=== PATIENT | male | born 1970 | race Caucasian/White ===

== ENCOUNTER 2018-06-05 19:55 | Emergency (ER) | payer OTHER ==
[2018-06-05 19:55] VITALS: BMI 22.1
--- NOTE | 2018-06-05 21:32 | C.PDOC ---
History Of Present Illness 47 year old male presents to the ED c/o neck pain radiating to his left arm for the past 3-4 days. Patient reports pain worsens while sleeping on his left side. Patient denies headache, CP, SOB, palpitations, weakness, numbness, injury, fall, trauma. Time Seen by Provider: 06/05/18 20:49 Chief Complaint (Nursing): Upper Extremity Problem/Injury History Per: Patient History/Exam Limitations: no limitations Onset/Duration Of Symptoms: Days (3-4) Current Symptoms Are (Timing): Still Present Quality: "Pain" Exacerbating Factor(s): Worse At Night Recent travel outside of the [place]: No Additional History Per: Patient Past Medical History Reviewed: Historical Data, Nursing Documentation, Vital Signs Vital Signs: Last Vital Signs Temp 98.4 F 06/05/18 20:27 Pulse 72 06/05/18 20:27 Resp 16 06/05/18 20:27 BP 114/68 06/05/18 20:27 Pulse Ox 99 06/05/18 20:27 - Medical History PMH: No Chronic Diseases Surgical History: No Surg Hx - [facility] Procedures LAPAROSCOP APPENDECTOMY (11/09/13) Family History: States: Unknown Family Hx - Social History Hx Tobacco Use: No Hx Alcohol Use: No Hx Substance Use: No - Immunization History Hx Tetanus Toxoid Vaccination: No Hx Influenza Vaccination: No Hx Pneumococcal Vaccination: No Review Of Systems Constitutional: Negative for: Fever, Chills Cardiovascular: Negative for: Chest Pain Respiratory: Negative for: Cough, Shortness of Breath Gastrointestinal: Negative for: Nausea, Vomiting, Abdominal Pain Musculoskeletal: Positive for: Neck Pain, Arm Pain Skin: Negative for: Rash Neurological: Negative for: Weakness, Numbness, Headache Physical Exam - Physical Exam Appears: Non-toxic, No Acute Distress Skin: Normal Color, Warm, Dry Head: Atraumatic, Normacephalic Eye(s): bilateral: Normal Inspection Neck: Normal ROM, Midline Cervical Tenderness, Paracervical Tenderness (left side), Supple Extremity: Normal ROM (left arm, shoulder and elbow normal), No Tenderness, Capillary Refill (< 2 seconds), No Swelling Pulses: Left Radial: Normal, Right Radial: Normal Neurological/Psych: Oriented x3, Normal Speech, Normal Cognition, Normal Motor, Normal Sensation Gait: Steady ED Course And Treatment O2 Sat by Pulse Oximetry: 99 (ON RA) Pulse Ox Interpretation: Normal - Other Rad Cervical Spine X-Ray X-Ray: Interpreted by Me, Viewed By Me Interpretation: muscle spasm, straightening of cervical lordosis, DJD Progress Note: Plan: - Cervical spine X-Ray. Patient was prescribed pain m edeications, advised to follow up with PMD in 2 days for further evaluation. Disposition - Disposition Disposition: HOME/ ROUTINE Disposition Time: 22:58 Condition: STABLE Additional Instructions: Follow up with your PMD within 1-2 days. Return to ED if feel worse. 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 - Scribe Statement The provider has reviewed the documentation as recorded by the Scribe Osiel Headley All medical record entries made by the Scribe were at my direction and personally dictated by me. I have reviewed the chart and agree that the record accurately reflects my personal performance of the history, physical exam, medical decision making, and the department course for this patient. I have also personally directed, reviewed, and agree with the discharge instructions and disposition.
[2018-06-05 22:58] VITALS: BP 115/69; PULSE 67; RESP 18; TEMP 97.6
[2018-06-05 23:00] VITALS: O2SAT 99
--- NOTE | 2018-06-06 12:37 | RAD ---
The date of service: 06/05/2018 PROCEDURE: Cervical Spine Radiographs. Three standard views of the cervical spine performed. HISTORY: Pain. COMPARISON: No prior study available for comparison FINDINGS: BONES: No evidence of acute displaced or anterior wedge compression fractures nor retropulsed fragments. Vertebral bodies exhibit normal stature. Slight kyphotic angulation centered at the C3-C4 level with minimal anterior subluxation C3 over C4 and to a lesser degree C4 over C5 noted. Vertebral bodies and facets otherwise normally aligned. DISC SPACES: Minor multilevel degenerative spondylosis. Changes include varying degrees of mild disc space narrowing more so along the anterior disc margin with tiny anterior osteophyte formation. SOFT TISSUES: Normal. Prevertebral soft tissues unremarkable with no significant swelling OTHER FINDINGS: None. IMPRESSION: No acute fractures. Minor multilevel degenerative spondylosis. Slight kyphotic angulation deformity centered at the C3-C4 level with minimal anterior subluxation C3 over C4 and to a lesser degree C4 over C5..
== END 2018-06-05 23:05 | disposition home or self-care (01) ==
LOC: C.ER 19:55
DX: M54.12 Radiculopathy, cervical region (principal)

== ENCOUNTER 2018-06-20 13:06 | Emergency (ER) | payer OTHER ==
[2018-06-20 13:06] VITALS: BMI 22.1
[2018-06-20 13:16] VITALS: BP 145/92; PULSE 85; RESP 16; TEMP 98.5; O2SAT 98
[2018-06-20] MEDS ORDERED: Lidocaine 5% Patch TD STA (13:48)
[2018-06-20] MEDS ORDERED: Lidocaine 5% Patch TD ONE (13:51)
--- NOTE | 2018-06-20 14:42 | C.PDOC ---
History Of Present Illness The patient is a 47 year old male who was evaluated in this ED on 06/05 for complaint of left arm pain that started at neck and had been radiating down for weeks. Patient was given Tramadol and Motrin and instructed to follow up with orthopedic care and pain management. Patient states his appointment will take weeks and he is still having pain. He presents to the ED requesting pain medication. He denies headache, chest pain, or extremity numbness/weakness. 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 History/Exam Limitations: language barrier Onset/Duration Of Symptoms: Days Current Symptoms Are (Timing): Still Present Quality: "Pain" Additional History Per: Patient Past Medical History Reviewed: Historical Data, Nursing Documentation, Vital Signs Vital Signs: Last Vital Signs Temp 98.5 F 06/20/18 13:14 Pulse 85 06/20/18 13:14 Resp 16 06/20/18 13:14 BP 145/92 H 06/20/18 13:14 Pulse Ox 98 06/20/18 13:14 - Medical History PMH: No Chronic Diseases Surgical History: No Surg Hx - [facility] Procedures LAPAROSCOP APPENDECTOMY (11/09/13) Family History: States: Unknown Family Hx - Social History Hx Tobacco Use: No Hx Alcohol Use: No Hx Substance Use: No - Immunization History Hx Tetanus Toxoid Vaccination: No Hx Influenza Vaccination: No Hx Pneumococcal Vaccination: No Review Of Systems Cardiovascular: Negative for: Chest Pain Musculoskeletal: Positive for: Neck Pain, Arm Pain (left ) Neurological: Negative for: Weakness, Numbness, Headache Physical Exam - Physical Exam Appears: Non-toxic, No Acute Distress Skin: Normal Color, Warm, Dry Head: Atraumatic, Normacephalic Eye(s): bilateral: Normal Inspection Oral Mucosa: Moist Neck: Normal ROM, No Midline Cervical Tenderness, No Paracervical Tenderness, Supple Extremity: Normal ROM, No Tenderness, Capillary Refill (less than 2 seconds ), No Swelling Neurological/Psych: Oriented x3, Normal Speech, Normal Cognition, Normal Sensation Gait: Steady ED Course And Treatment O2 Sat by Pulse Oximetry: 98 (on RA) Pulse Ox Interpretation: Normal Medical Decision Making Medical Decision Making: Progress: Tylenol PO, Motrin PO, and Lidocaine TD given. On reassessment, patient is resting comfortably, showing no signs of distress and is stable for discharge. Patient is advised to follow up with pain management for further evaluation. He is provided with a radiology disk from his visit on 06/05. Patient is advised to return to the ED if symptoms persist or worsen. Disposition Counseled Patient/Family Regarding: Diagnosis, Need For Followup, Rx Given - Disposition Referrals: Murali Mason MD [Staff Provider] - Disposition: HOME/ ROUTINE Disposition Time: 14:40 Condition: STABLE Prescriptions: Ibuprofen [Motrin] 600 mg PO BID #10 tab traMADol/Acetaminophen [Ultracet 37.5/325 mg] 1 tab PO BID PRN #10 tab PRN Reason: pain Instructions: Radiculopathy (DC) Forms: [facility] ([place]), General Discharge Instructions - POA Present On Arrival: None - Clinical Impression Clinical Impression: Cervical radiculopathy - Scribe Statement The provider has reviewed the documentation as recorded by the Scribe (Pratima Banks) Provider Attestation: All medical record entries made by the Scribe were at my direction and personally dictated by me. I have reviewed the chart and agree that the record accurately reflects my personal performance of the history, physical exam, medical decision making, and the department course for this patient. I have also personally directed, reviewed, and agree with the discharge instructions and disposition.
== END 2018-06-20 15:03 | disposition home or self-care (01) ==
LOC: C.ER 13:06
DX: M54.12 Radiculopathy, cervical region (principal)